=== PATIENT | female | born 1985 | race Caucasian/White ===

== ENCOUNTER 2016-12-28 20:10 | Emergency (ER) | payer OTHER ==
[~2016-12-28] VITALS: Ht 157.5 cm; Wt 60.0 kg
[~2016-12-28 20:10] MED LIST: OXYC-302 PO; PREN1TAB56 PO
[2016-12-28] MEDS ORDERED: ACETAMINOPHEN 500 MG TABLET PO ONE (21:00)
[2016-12-28] MEDS ORDERED: ACETAMINOPHEN 500 MG TABLET ONE (21:05)
[2016-12-28 21:15] LABS: DIFF TOTAL CELLS COUNTED 100 CELL DIFF
[2016-12-28 21:23] LABS: BLOOD UREA NITROGEN 14 mg/dL (7-18)
[2016-12-28 21:41] LABS: VERIFY COUNTS? YES
[2016-12-28 21:41] LABS: PATH.CAST-FLAG NOT PRESENT; SPERM-FLAG NOT PRESENT; SRC-FLAG NOT PRESENT; XTAL-FLAG NOT PRESENT; YLC-FLAG NOT PRESENT
[2016-12-28 22:20] VITALS: BP 122/84
== END 2016-12-28 22:22 | disposition home or self-care (01) ==
LOC: ED 22:16
DX: L03.032 Cellulitis of left toe (principal); B34.9 Viral infection, unspecified; L60.0 Ingrowing nail
CPT/HCPCS: 36415; 80048; 81001; 82040; 85025; 99284